=== PATIENT | male | born 1940 | race Caucasian/White ===

== ENCOUNTER → 2017-10-27 | Outpatient (CLI) | payer OTHER, MEDICARE | LOC: BHFA 16:00 | PROVIDERS: ATTEND Internal Medicine Cardiovascular Disease | DX: I49.9 Cardiac arrhythmia, unspecified (principal) ==

== ENCOUNTER → 2017-11-06 | Outpatient (CLI) | payer OTHER, MEDICARE | LOC: BMCIMAGING 12:46 | PROVIDERS: ATTEND Otolaryngology | DX: R05 Cough (principal) ==

== ENCOUNTER → 2018-07-21 | Outpatient (CLI) | payer OTHER, MEDICARE | LOC: BHFA 13:00 | PROVIDERS: ATTEND Internal Medicine Cardiovascular Disease | DX: I25.10 Atherosclerotic heart disease of native coronary artery without angina pectoris (principal); R06.02 Shortness of breath | CPT/HCPCS: 78452; 93017; A9500 ==

== ENCOUNTER → 2018-07-24 | Outpatient (CLI) | payer OTHER, MEDICARE | LOC: BHFA 15:30 | PROVIDERS: ATTEND Internal Medicine Cardiovascular Disease | DX: R06.02 Shortness of breath (principal) ==